=== PATIENT | male | born 1950 | race Caucasian/White ===

== ENCOUNTER 2017-11-28 14:11 | Outpatient (CLI) | payer MEDICARE ==
--- NOTE | 2017-11-28 14:22 | RAD ---
CHEST TWO VIEWS: Comparison: None. History: Chest pain. FINDINGS: Two views of the chest shows a normal sized cardiomediastinal silhouette. There is no evidence of con solidation, mass, or pleural effusion. Degenerative changes are seen in the spine. Biapical pleural t hickening is seen. IMPRESSION: No evidence of acute cardiopulmonary disease. POS: [facility]
== END 2017-11-28 14:12 | disposition home or self-care (01) ==
LOC: RAD-FRANK 14:11
PROVIDERS: ATTEND Nurse Practitioner Family
DX: R07.9 Chest pain, unspecified (principal)
CPT/HCPCS: 71046

== ENCOUNTER → 2018-01-21 | Day surgery (SDC) | payer MEDICARE ==
[2018-01-18 14:59] VITALS: BMI 26.6
[~2018-01-21] MED LIST: Fentanyl 100 MCG/2 ML VIAL ONE; Heparin 10,000 UNITS/1 ML VIAL ONE; Iopamidol 370 76% 100 ML VIAL ONE; Iopamidol 370 76% 50 ML VIAL FS ONE; Lidocaine 1% (PF) 30 ML VIAL ONE; Midazolam HCl 2 mg/2 ml Vial ONE; Protamine Sulfate 50 MG/5 ML VIAL ONE
[2018-01-21 06:41] LABS: #Basophils 0.1 thou/uL (0.0-0.2); #Eosinphils 0.2 thou/uL (0.0-0.7); #Lymphocytes 2.4 thou/uL (1.20-3.40); #Monocytes 0.7 thou/uL (0.11-0.59); #Neutrophils 3.7 thou/uL (1.40-6.50); %Basophils 1.3 % (0.0-1.0); %Eosinophils 2.2 % (0.0-10.0); %Lymphocytes 34.1 % (21.0-51.0); %Monocytes 9.6 % (0.0-10.0); %Neutrophils 52.8 % (42.0-75.0); Hemoglobin 14.4 g/dL (14.0-18.0); Mean Corpuscular HGB CONC 34.2 g/dL (32.0-36.0); Mean Corpuscular Volume 99.2 fL (78.0-98.0); Mean Platelet Volume 6.9 fL (7.4-10.4); Platelet Count 198 thou/uL (130-400); RBC Distribution Width 10.6 % (11.5-14.5); Red Blood Cell (RBC) Count 4.24 mill/uL (4.70-6.10); White Blood Cell (WBC) Count 6.9 thou/uL (4.8-10.8)
[2018-01-21 06:48] LABS: INR-International Normal Ratio 1.1; PTT 32.6 SEC (22.9-36.1); Prothrombin Time 13.8 SEC (12.0-14.7)
[2018-01-21 07:05] LABS: Anion Gap 10 mmol/L (10-20); BUN (Urea Nitrogen) 16 mg/dL (8.4-25.7); Calc. Creatinine Clearance 96 mL/min (70-130); Carbon Dioxide 27 mmol/L (23-31); Cardiac Risk 3.6 (Less than 4.5); Chloride 101 mmol/L (98-107); Cholesterol 153 mg/dl (< 200 Desired); Estimated GFR-MDRD 80; Glucose 103 mg/dL (80-115); HDL Cholesterol 43 mg/dL (>60 Neg Risk); LDL Cholesterol, Calculated 86 mg/dL; Sodium 134 mmol/L (136-145); Triglycerides 119 mg/dL (Less than 150)
--- NOTE | 2018-01-21 17:12 | DIS ---
DISCHARGE DIAGNOSES: 1. Moderate left ventricular dysfunction with ejection fraction of 35%-40%. 2. Minimal coronary artery disease with 20% proximal left anterior descending. 3. Hypercholesterolemia with LDL of 86. 4. PSA elevation. 5. Positive family history. 6. Distant smoker. DISCHARGE MEDICATIONS: Metoprolol 25 BID, aspirin 81 daily, atorvastatin 20 daily, furosemide 20 q.a.m. DISCHARGE DISPOSITION: The patient will be seen in 6 weeks with complete metabolic profile and fasting lipid profile being obtained. Consideration should be given to echo in 3 months. HOSPITAL COURSE: Mr. Sosa underwent cardiac catheterization. This revealed moderate left ventricular dysfunction with ejection fraction of 35%-40% and 20% proximal LAD lesion. LDL was 86 and was started on atorvastatin 20 mg daily. He complained of a headache on Carvedilol 3.125 qd. He was changed to Metoprolol 25 BID and low-dose furosemide was added. Consideration will be given to addition of an YOLANDA inhibitor on reassessment of his blood pressure. [facility] [place] [facility]
== END ==
LOC: CCL 05:50
PROVIDERS: ATTEND Internal Medicine Cardiovascular Disease
PROC: 4A023N7 Measurement of Cardiac Sampling and Pressure, Left Heart, Percutaneous Approach (ICD-10-PCS; principal; 2018-01-21)
PROC: B2111ZZ Fluoroscopy of Multiple Coronary Arteries using Low Osmolar Contrast (ICD-10-PCS; 2018-01-21)
DX: I25.118 Atherosclerotic heart disease of native coronary artery with other forms of angina pectoris (principal); E78.00 Pure hypercholesterolemia, unspecified; Z87.891 Personal history of nicotine dependence; Z79.82 Long term (current) use of aspirin; Z79.899 Other long term (current) drug therapy
CPT/HCPCS: 80048; 80061; 85025; 85347; 85610; 85730; 93458; C1769; 36415; 99152; 99153; J1644; J2001; J2250; J2720; J3010

== ENCOUNTER 2018-03-05 09:17 | Outpatient (CLI) | payer MEDICARE ==
--- NOTE | 2018-03-05 12:14 | RAD ---
CERVICAL SPINE FOUR VIEWS: History: Cervical pain. FINDINGS: There are moderate degenerative disc changes at all levels with loss of disc space throughout the cer vical spine. Slight posterior listhesis is seen at C3-4 and C4-5. Posterior spondylosis at all levels below C3. Mild anterior osteophytes. No evidence of compression or fracture. IMPRESSION: Moderate degenerative changes of the cervical spine as described. POS: [facility]
== END 2018-03-05 09:18 | disposition home or self-care (01) ==
LOC: RAD-FRANK 09:17
PROVIDERS: ATTEND Nurse Practitioner Family
DX: M54.2 Cervicalgia (principal); M47.892 Other spondylosis, cervical region
CPT/HCPCS: 72040

== ENCOUNTER 2018-06-03 13:05 | Outpatient (CLI) | payer MEDICARE ==
--- NOTE | 2018-06-03 18:14 | MRI ---
MRI PELVIS WITH AND WITHOUT CONTRAST: HISTORY: Negative biopsy. Elevated PSA. COMPARISON: None. TECHNIQUE: Multiplanar, multisequence MRI of the pelvis is performed prior to and after the intravenous administ ration of contrast. The exam was reviewed on an independent 3D work station. FINDINGS: The biopsy measures 4.5 x 3.5 x 3.6 cm, for a volume of 25.6 mL. Peripheral zone: There are a few peripheral, indistinct, hypodense foci on the ADD without abnormal increased signal on the diffusion-weighted imaging sequence. Transitional zone: There are circumscribed hypointense and heterogeneous encapsulated nodules. No f ocal lentiform abnormal decreased signal. Seminal vesicles: Intact. Neurovascular bundles: Intact. Capsule: Intact. Lymph nodes: No adenopathy. Skeleton: There is moderate degenerative disease of the pubic symphysis. There are no abnormal area s of marrow signal replacement on the T1 weight sequence. Intrapelvic soft tissues: Moderate diverticular disease of the sigmoid colon. IMPRESSION: 1. PI-RADS 2: Low (clinically significant prostate cancer is unlikely to be present). 2. Intact neurovascular bundles and prostatic capsule. 3. Mild diverticular disease of the sigmoid colon without active inflammation. POS: [facility]
== END 2018-06-03 13:06 | disposition home or self-care (01) ==
LOC: TBSIIMAG 13:05
PROVIDERS: ATTEND Urology
DX: R97.20 Elevated prostate specific antigen [PSA] (principal); K57.30 Diverticulosis of large intestine without perforation or abscess without bleeding
CPT/HCPCS: 72197